=== PATIENT | male | born 1990 | race Two or more races ===

== ENCOUNTER 2020-04-26 19:46 | Emergency (ER) | payer SELFPAY ==
[~2020-04-26] VITALS: Ht 180.3 cm; Wt 90.7 kg
[2020-04-26 20:08] VITALS: BP 122/69
--- NOTE | 2020-04-26 20:14 | NUR ---
CALLED LAB REGARDING COVID [facility]
== END 2020-04-26 20:57 | disposition home or self-care (01) ==
LOC: ER 19:46
DX: B34.9 Viral infection, unspecified (principal); R43.9 Unspecified disturbances of smell and taste; R19.7 Diarrhea, unspecified; Z20.822 Contact with and (suspected) exposure to COVID-19
CPT/HCPCS: 87426; 99283; C9803